=== PATIENT | female | born 1995 | race African-American/Black ===

== ENCOUNTER 2020-01-09 18:48 | Inpatient (IN) | payer SELFPAY ==
[~2020-01-09] VITALS: Ht 180.3 cm; Wt 71.7 kg
[2020-01-09] MEDS ORDERED: LEVETIRACETAM 500MG PREMIX 100 ML IV ONE (19:00)
[2020-01-09] MEDS ORDERED: LORAZEPAM 2MG/ML CPJ IV ONE ×2 (19:00→19:45)
[2020-01-09 19:38] LABS: BASOPHILS % 0.4 % (0.0-2.0); EOSINOPHILS % 2.8 % (0.0-5.0); HEMATOCRIT. 40.6 % (36.0-48.0); HEMOGLOBIN. 13.4 g/dL (12.0-16.0); MEAN CORPUSCULAR VOLUME 87.9 fL (81.0-99.0); MEAN PLATELET VOLUME 8.9 fl (7.4-10.4); MONOCYTES % 10.3 % (2.0-8.0); NEUTROPHILS % 69.5 % (40.0-76.0); PLATELET 235 x1000/uL (130-400); RED BLOOD CELL COUNT 4.62 mill/uL (4.2-5.4); RED CELL DISTRIBUTION WIDTH 14.4 % (11.6-14.6)
[2020-01-09 19:45] LABS: CHLORIDE 105 mEq/L (98-107)
[2020-01-09 19:48] LABS: HCG SCREEN NEGATIVE
[2020-01-09 19:49] LABS: ETHANOL BLOOD < 10 mg/dL
[2020-01-09 20:07] LABS: CARBAMAZEPINE < 0.5 ug/mL (4-12); PHENOBARBITAL < 2.1 ug/mL (15.0-40.0); VALPROIC ACID < 3.0 ug/mL (50-100)
[2020-01-09 20:38] LABS: CLARITY URINE CLOUDY (CLEAR); COLOR URINE YELLOW (YELLOW); KETONES URINE NEGATIVE (NEGATIVE); LEUKOCYTE ESTERASE URINE NEGATIVE (NEGATIVE); NITRITE URINE NEGATIVE (NEGATIVE); OCCULT BLOOD URINE NEGATIVE (NEGATIVE); PROTEIN URINE 2+ (NEGATIVE); SPECIFIC GRAVITY URINE 1.022 (1.005-1.030)
[2020-01-09 20:53] LABS: *BARBITURATES SCREEN URINE NEGATIVE (NEGATIVE); *COCAINE SCREEN URINE NEGATIVE (NEGATIVE)
[2020-01-09 20:54] LABS: METHADONE URINE SCREEN NEGATIVE (NEGATIVE); OPIATES URINE SCREEN NEGATIVE (NEGATIVE); PHENCYCLIDINE URINE SCREEN NEGATIVE (NEGATIVE)
[2020-01-09 21:03] LABS: *AMPHETAMINES SCREEN URINE PRESUMTIVE POSITIVE (NEGATIVE); *BENZODIAZEPINES SCREEN URINE PRESUMTIVE POSITIVE (NEGATIVE); CANNABINOID URINE SCREEN PRESUMTIVE POSITIVE (NEGATIVE)
[2020-01-10] VITALS (9 sets, daily range): BP systolic 82–98; BP diastolic 41–72
[2020-01-10] MEDS ORDERED: SODIUM CHLORIDE 0.9% 1000ML BAG (SEPSIS BOLUS) IV ONE (00:15)
[2020-01-10] MEDS ORDERED: DIPHENHYDRAMINE 50MG/ML VIAL IV PRN (09:30)
[2020-01-10] MEDS ORDERED: CLONIDINE 0.1MG TABLET PO PRN (09:30)
[2020-01-10] MEDS ORDERED: IPRATROPIUM/ALBUTEROL 0.5-3(2.5)MG/3ML NEB HHN PRN (09:30)
[2020-01-10] MEDS ORDERED: ONDANSETRON HCL 4MG/2ML INJ IV PRN (09:30)
[2020-01-10] MEDS ORDERED: KEPP500 MT (10:28)
[2020-01-10] MEDS: SODIUM CHLORIDE 0.9% 1,000 ML IV SCH ×2 (10:45→22:08)
[2020-01-10] MEDS: LEVETIRACETAM 500MG PREMIX 100 ML IV SCH ×2 (12:05→21:00)
[2020-01-10] MEDS: ACETAMINOPHEN 325MG TABLET PO PRN (19:42)
[2020-01-11] VITALS (16 sets, daily range): BP systolic 86–108; BP diastolic 41–72
[2020-01-11 06:22] LABS: BASOPHILS % 0.8 % (0.0-2.0); EOSINOPHILS % 7.7 % (0.0-5.0); HEMATOCRIT. 32.2 % (36.0-48.0); HEMOGLOBIN. 10.6 g/dL (12.0-16.0); LYMPHOCYTES % 25.9 % (20.0-50.0); MEAN CORPUSCULAR HEMOGLOBIN 29.2 pg (28.0-32.0); MEAN CORPUSCULAR VOLUME 88.3 fL (81.0-99.0); MEAN PLATELET VOLUME 9.1 fl (7.4-10.4); MONOCYTES % 9.6 % (2.0-8.0); PLATELET 169 x1000/uL (130-400); RED BLOOD CELL COUNT 3.64 mill/uL (4.2-5.4); RED CELL DISTRIBUTION WIDTH 14.2 % (11.6-14.6)
[2020-01-11 06:43] LABS: CHLORIDE 114 mEq/L (98-107)
[2020-01-11 06:56] LABS: LDL CHOLESTEROL 62 mg/dL (5-100)
[2020-01-11 06:58] LABS: HDL CHOLESTEROL 39 mg/dL (40-59)
[2020-01-11] MEDS: LEVETIRACETAM 500MG PREMIX 100 ML IV SCH (10:08)
[2020-01-11] MEDS: SODIUM CHLORIDE 0.9% 1,000 ML IV SCH ×2 (10:08→18:45)
[2020-01-11] MEDS ORDERED: SODIUM CHLORIDE 0.9% 500 ML IV SCH (10:30)
[2020-01-11] MEDS: ACETAMINOPHEN 325MG TABLET PO PRN ×2 (12:12→20:40)
[2020-01-11] MEDS ORDERED: IBUPROFEN 600MG TABLET PO PRN (16:30)
[2020-01-11] MEDS: LEVETIRACETAM 500MG TABLET PO SCH (20:40)
[2020-01-12] VITALS (28 sets, daily range): BP systolic 75–130; BP diastolic 33–71
[2020-01-12] MEDS: SODIUM CHLORIDE 0.9% 1,000 ML IV SCH ×3 (05:11→19:42)
[2020-01-12 06:23] LABS: BASOPHILS % 0.8 % (0.0-2.0); HEMATOCRIT. 30.9 % (36.0-48.0); HEMOGLOBIN. 10.3 g/dL (12.0-16.0); LYMPHOCYTES % 28.5 % (20.0-50.0); MEAN CORPUSCULAR HEMOGLOBIN 29.5 pg (28.0-32.0); MEAN CORPUSCULAR VOLUME 88.6 fL (81.0-99.0); MEAN PLATELET VOLUME 9.7 fl (7.4-10.4); MONOCYTES % 9.3 % (2.0-8.0); NEUTROPHILS % 50.4 % (40.0-76.0); PLATELET 165 x1000/uL (130-400); RED BLOOD CELL COUNT 3.48 mill/uL (4.2-5.4); RED CELL DISTRIBUTION WIDTH 14.1 % (11.6-14.6)
[2020-01-12 06:24] LABS: CHLORIDE 114 mEq/L (98-107)
[2020-01-12] MEDS: LORAZEPAM 2MG/ML CPJ IV PRN (07:50)
[2020-01-12] MEDS: LEVETIRACETAM 500MG TABLET PO SCH ×2 (08:51→21:06)
[2020-01-12] MEDS ORDERED: KEPP500 MT (10:50)
[2020-01-12] MEDS ORDERED: LEVETIRACETAM 1,000 MG in SODIUM CHLORIDE 0.9% 100 ML IV SCH (21:00)
[2020-01-13] VITALS (14 sets, daily range): BP systolic 72–105; BP diastolic 34–54
[2020-01-13] MEDS: LEVETIRACETAM 500MG TABLET PO SCH ×2 (10:14→20:16)
[2020-01-13] MEDS: SODIUM CHLORIDE 0.9% 1,000 ML IV SCH ×2 (10:14→18:10)
[2020-01-13] MEDS ORDERED: KEPP500 MT (11:36)
[2020-01-13] MEDS: LORAZEPAM 2MG/ML CPJ IV PRN (12:12)
[2020-01-13] MEDS ORDERED: LORAZEPAM 2MG/ML CPJ IV PRN (13:30)
[2020-01-13] MEDS: MIDODRINE HCL 5MG TABLET PO SCH ×2 (13:47→18:09)
[2020-01-13] MEDS ORDERED: MIDO5TAB4 PO (17:49)
== END 2020-01-13 21:10 | disposition home or self-care (01) | DRG 53 ==
LOC: ER 18:48 → EDBD 01-10 04:30 → 5EST 01-10 04:30 → ENRESERV 01-10 05:10
PROVIDERS: ADMIT Internal Medicine; ATTEND Internal Medicine
DX: G40.909 Epilepsy, unspecified, not intractable, without status epilepticus (principal); I95.9 Hypotension, unspecified; I27.21 Secondary pulmonary arterial hypertension; I07.1 Rheumatic tricuspid insufficiency; I10 Essential (primary) hypertension; F15.10 Other stimulant abuse, uncomplicated; F12.10 Cannabis abuse, uncomplicated; S00.83XA Contusion of other part of head, initial encounter; F17.210 Nicotine dependence, cigarettes, uncomplicated; T42.6X6A Underdosing of other antiepileptic and sedative-hypnotic drugs, initial encounter; X58.XXXA Exposure to other specified factors, initial encounter; Y93.89 Activity, other specified; Y92.89 Other specified places as the place of occurrence of the external cause; Y99.8 Other external cause status; Z87.820 Personal history of traumatic brain injury
CPT/HCPCS: 36415; 71045; 80048; 80053; 80061; 80156; 80165; 80184; 80185; 80305; 80320; 81003; 84443; 84484; 84703; 85025; 93005; 93306; 93970; 99291; C1893; J1953; J2060; J7030; J7050; G0480

== ENCOUNTER 2020-01-15 18:07 | Emergency (ER) | payer SELFPAY ==
[~2020-01-15] VITALS: Ht 170.2 cm; Wt 55.0 kg
[~2020-01-15 18:07] MED LIST: KEPP500 MT; MIDO5TAB4 PO
[2020-01-15 18:25] VITALS: BP 104/43
[2020-01-15] MEDS ORDERED: SODIUM CHLORIDE 0.9% 1,000 ML IV ONE (18:30)
== END 2020-01-15 19:00 | disposition left against medical advice (07) ==
LOC: ER 18:07
DX: G40.909 Epilepsy, unspecified, not intractable, without status epilepticus (principal)
CPT/HCPCS: 99283; J7030

== ENCOUNTER 2020-12-04 03:42 | Emergency (ER) | payer MEDICAID ==
[~2020-12-04] VITALS: Ht 177.8 cm; Wt 73.0 kg
[2020-12-04] MEDS ORDERED: LEVETIRACETAM 500MG PREMIX 100 ML IV ONE (03:45)
[2020-12-04] MEDS ORDERED: SODIUM CHLORIDE 0.9% 1,000 ML IV ONE (03:45)
[2020-12-04] MEDS ORDERED: LORAZEPAM 2MG/ML CPJ IM ONE (03:45)
[2020-12-04] MEDS ORDERED: LORAZEPAM 2MG/ML CPJ IV ONE (04:00)
[2020-12-04] MEDS ORDERED: OXCARBAZEPINE 300MG TABLET PO ONE (04:15)
[2020-12-04] MEDS ORDERED: LEVETIRACETAM 500MG/5ML CUP PO ONE (04:15)
[2020-12-04 04:32] LABS: BASOPHILS % 0.5 % (0.0-2.0); HEMATOCRIT. 39.9 % (36.0-48.0); HEMOGLOBIN. 12.5 g/dL (12.0-16.0); LYMPHOCYTES % 22.1 % (20.0-50.0); MEAN CORPUSCULAR HEMOGLOBIN 26.1 pg (28.0-32.0); MEAN CORPUSCULAR VOLUME 83.2 fL (81.0-99.0); MEAN PLATELET VOLUME 9.6 fl (7.4-10.4); MONOCYTES % 7.5 % (2.0-8.0); NEUTROPHILS % 67.9 % (40.0-76.0); PLATELET 221 x1000/uL (130-400); RED CELL DISTRIBUTION WIDTH 15.3 % (11.6-14.6)
[2020-12-04 04:40] LABS: CHLORIDE 112 mEq/L (98-107)
[2020-12-04 04:44] LABS: ETHANOL BLOOD < 10 mg/dL
[2020-12-04] MEDS ORDERED: OXCA300T4 MT (05:32)
[2020-12-04] MEDS ORDERED: KEPP500 MT (05:32)
[2020-12-04] MEDS ORDERED: LACO200T2 MT (05:32)
[2020-12-04 08:38] LABS: CLARITY URINE CLEAR (CLEAR); KETONES URINE NEGATIVE (NEGATIVE); LEUKOCYTE ESTERASE URINE NEGATIVE (NEGATIVE); NITRITE URINE NEGATIVE (NEGATIVE); OCCULT BLOOD URINE NEGATIVE (NEGATIVE); PH URINE 6.5 (4.5-8.0); PROTEIN URINE NEGATIVE (NEGATIVE); SPECIFIC GRAVITY URINE 1.007 (1.005-1.030); UROBILINOGEN URINE 0.2 E.U./dL (0.2-1.0)
[2020-12-04 08:39] LABS: COLOR URINE PALE YELLOW (YELLOW)
[2020-12-04 08:57] LABS: *AMPHETAMINES SCREEN URINE NEGATIVE (NEGATIVE); *BARBITURATES SCREEN URINE NEGATIVE (NEGATIVE)
[2020-12-04 08:58] LABS: *BENZODIAZEPINES SCREEN URINE NEGATIVE (NEGATIVE); *COCAINE SCREEN URINE NEGATIVE (NEGATIVE); METHADONE URINE SCREEN NEGATIVE (NEGATIVE); OPIATES URINE SCREEN NEGATIVE (NEGATIVE)
[2020-12-04 09:03] LABS: PHENCYCLIDINE URINE SCREEN NEGATIVE (NEGATIVE)
[2020-12-04 09:08] LABS: CANNABINOID URINE SCREEN PRESUMTIVE POSITIVE (NEGATIVE)
[2020-12-04 11:05] VITALS: BP 100/55
== END 2020-12-04 15:46 | disposition home or self-care (01) ==
LOC: ER 03:42
DX: R56.9 Unspecified convulsions (principal); F12.10 Cannabis abuse, uncomplicated
CPT/HCPCS: 36415; 70450; 71045; 80053; 80305; 80320; 81003; 82962; 85025; 93005; 96372; 96374; 99285; J1953; J2060; J7030; G0480

== ENCOUNTER 2020-12-07 01:28 | Emergency (ER) | payer MEDICAID ==
[~2020-12-07] VITALS: Ht 157.5 cm; Wt 60.0 kg
[~2020-12-07 01:28] MED LIST changes: +LACO200T2 MT; +OXCA300T4 MT
[2020-12-07 01:30] VITALS: BP 126/81
[2020-12-07] MEDS ORDERED: LEVETIRACETAM 500MG PREMIX 100 ML IV ONE (02:00)
[2020-12-07] MEDS ORDERED: SODIUM CHLORIDE 0.9% 1,000 ML IV ONE (02:00)
== END 2020-12-07 02:13 | disposition left against medical advice (07) ==
LOC: ER 01:28
DX: R56.9 Unspecified convulsions (principal); F12.10 Cannabis abuse, uncomplicated
CPT/HCPCS: 99283; J7030

== ENCOUNTER 2023-04-05 14:01 | Emergency (ER) | payer MEDICAID ==
[~2023-04-05] VITALS: Ht 162.6 cm; Wt 60.0 kg
[2023-04-05] MEDS ORDERED: LEVETIRACETAM 500MG TABLET PO ONE (14:15)
[2023-04-05 14:19] VITALS: BP 116/64; PULSE 105; RESP 16; TEMP 98.8; O2SAT 96
== END 2023-04-05 15:06 | disposition left against medical advice (07) ==
LOC: ER 14:01
DX: R56.9 Unspecified convulsions (principal); F12.10 Cannabis abuse, uncomplicated; Z91.199 Patient's noncompliance with other medical treatment and regimen due to unspecified reason
CPT/HCPCS: 99283